=== PATIENT | male | born 1960 | race Caucasian/White ===

== ENCOUNTER → 2017-12-31 | Emergency (ER) | payer OTHER ==
[~2017-12-31] VITALS: Ht 177.8 cm; Wt 77.1 kg
[~2017-12-31] MED LIST: ADVAIR 2501 DISK W/1 IH; ALBUTEROL SULF8.5 GM IH; ATARAX25 MG PO; CLONAZEPAM 1MG TAB PO; CLONAZEPAM 2 MG PO; CLOTRIMAZOLE-BE15 G1 TOP; DEPAKOTE 500 MG PO; LEVAQUIN500 MG PO; NORVIR100 M1 PO; PEPCID40 MG PO; PERCOCET 5/3251 TAB PO; PREZISTA 800 MG PO; Proventil 0.083% 2.5MG/3ML AMPUL.NEB. IH; ROZEREM8 MG PO; SEPTRA DS TABLE1 TAB PO; TRIAMCINOLONE A15 G4 TOP; TRUVADA 200 MG-300 MG TABLET PO
== END | disposition home or self-care (01) ==
LOC: ER 05:04
DX: L30.8 Other specified dermatitis (principal)

== ENCOUNTER 2018-01-29 07:22 | Emergency (ER) | payer OTHER ==
[~2018-01-29] VITALS: Ht 177.8 cm; Wt 81.6 kg
[2018-01-29] MEDS ORDERED: MUPIROCIN22 GM TOP (15:52)
[2018-01-29] MEDS ORDERED: AMOX1TAB5 PO (15:52)
== END 2018-01-29 19:34 | disposition home or self-care (01) ==
LOC: ER 07:22
DX: S90.812A Abrasion, left foot, initial encounter (principal); R60.0 Localized edema; F41.8 Other specified anxiety disorders; Y04.2XXA Assault by strike against or bumped into by another person, initial encounter; Y93.89 Activity, other specified; Y92.488 Other paved roadways as the place of occurrence of the external cause; Y99.8 Other external cause status

== ENCOUNTER → 2021-10-17 | Day surgery (SDC) | payer OTHER ==
[~2021-10-17] MED LIST changes: +AMOX1TAB5 PO; +MUPIROCIN22 GM TOP; +NORVIR PO; +PERCOCET 5-3251 EACH PO; +[UNRECOGNIZED DRUG - OTHER] PO; +[UNRECOGNIZED DRUG - OTHER] PO
== END | disposition home or self-care (01) ==
LOC: ADM 10-12 07:00 → CIR.AMB 05:15
PROVIDERS: ATTEND Surgery
DX: N48.6 Induration penis plastica (principal); Z88.8 Allergy status to other drugs, medicaments and biological substances; Z86.16 Personal history of COVID-19; J43.9 Emphysema, unspecified